=== PATIENT | female | born 1995 | race American Indian/Alaskan Native ===

== ENCOUNTER 2017-08-20 21:00 | Emergency (ER) | payer SELFPAY ==
[2017-08-20 22:26] VITALS: BP 130/87
[2017-08-21] MEDS ORDERED: MOTRIN PO ONE (05:54)
--- NOTE | 2017-08-21 05:54 | Emergency Department Report ---
Minor Respiratory - HPI Chief Complaint: Sore Throat Stated Complaint: COLD SX Time Seen by Provider: 08/21/17 03:53 Duration: Today Pain Location: Throat Severity: severe (8 out of 10 and sore throat) Minor Respiratory: Yes Rhinorrhea (congestion), Yes Sore Throat, Yes Able to Tolerate Fluids, Yes Cough, No Ear Pain, No Sick Contacts, No Hemoptysis, No Chest Pain, No Shortness of Breath, No Fever (patient reports chills) Other History: Patient reports that she has sore throat 1 days with chills but no fever. She reports that she has occasional cough pain is 8 out of 10 and sore. Denies any drooling, difficulty swallowing. Patient says she gets this once a year and she think she needs antibiotic. She has not tried anything over -the-counter. Denies any shortness of breath, or chest pain. ED Review of Systems ROS: Stated complaint: COLD SX Other details as noted in HPI Comment: All other systems reviewed and negative Constitutional: chills ENT: throat pain, congestion Respiratory: cough. denies: orthopnea, shortness of breath, SOB with exertion, SOB at rest, stridor, wheezing Cardiovascular: denies: chest pain, palpitations, edema, syncope Gastrointestinal: denies: abdominal pain, nausea, vomiting, diarrhea, constipation, hematemesis, melena, hematochezia Musculoskeletal: denies: back pain, joint swelling, arthralgia, myalgia Skin: denies: rash Neurological: denies: headache, weakness ED Past Medical Hx - Past Medical History Previous Medical History?: No - Surgical History Past Surgical History?: No - Family History Family history: no significant - Social History Smoking Status: Never Smoker Substance Use Type: Alcohol - Medications Home Medications: Home Medications Medication Instructions Recorded Confirmed Last Taken Type Cetirizine HCl [ZyrTEC] 10 mg PO QAM 14 Days #14 capsule 08/21/17 Unknown Rx Fluticasone [Flonase] 1 spray NS QDAY 14 Days #1 bottle 08/21/17 Unknown Rx Ibuprofen [Motrin] 600 mg PO Q8H PRN 4 Days #12 tablet 08/21/17 Unknown Rx Minor Respiratory Exam - Exam General: Vital signs noted. No distress. Alert and acting appropriately. This is a 22-year-old female well-nourished well-developed in no acute distress. HEENT: Yes Moist Mucous Membranes, Yes Rhinorrhea (nasal mucosa pale and boggy) , No Pharyngeal Erythema, No Pharyngeal Exudates, No Conjuctival Injection, No Frontal Tenderness, No Maxillary Tenderness Ear: Both TM Bulge (TM congested without erythema), Neither TM Erythema, Neither EAC Pain, Neither EAC Discharge Neck: Yes Supple, No Adenopathy Lungs: Yes Good Air Exchange, No Wheezes, No Ronchi, No Stridor, No Cough, No Labored Respirations, No Retractions, No Use of Accessory Muscles, No Other Abnormal Lung Sounds Heart: Yes Regular, No Murmur Abdomen: Yes Normal Bowel Sounds, No Tenderness, No Peritoneal Signs Skin: No Rash, No Edema Neurologic: Alert and oriented, no deficits. No focal neurological deficit Musculoskeletal: Unremarkable. ED Course Vital Signs 08/20/17 22:24 Temperature 98.7 F Pulse Rate 80 Respiratory 18 Rate Blood Pressure 130/87 O2 Sat by Pulse 100 Oximetry - Reevaluation(s) Reevaluation #1: 08/21/17 05:54 Patient here complaining of sore throat given Motrin 800 mg. Strep test negative culture pending ED Medical Decision Making - Lab Data Strep test negative Cultures pending - Medical Decision Making This is a 22-year-old female well-nourished well-developed in no acute distress. Patient here complaining of sore throat times one day with chills. Patient thinks she needs antibiotic because she says she gets this every year. Strep test revealed that the patient had no strep but she has cultures that are pending. Physical findings for allergic rhinitis with pale boggy nasal mucosa, drainage, and congested TM. vital signs are stable and she does not have any enlarged lymph nodes. I discussed this with patient and she feels like she needs antibiotic even though she has not tried anything [id number]. I discussed with her evidence base practice and the use of antibiotic when not necessary which leads to antibiotic resistance. Patient discharged home with prescription for Flonase, Zyrtec and Motrin. Discussion to gargle warm salt water and follow up with her primary care physician. Critical care attestation.: If time is entered above; I have spent that time in minutes in the direct care of this critically ill patient, excluding procedure time. ED Disposition Clinical Impression: Allergic rhinitis Qualifiers: Chronicity: acute Allergic rhinitis trigger: unspecified Allergic rhinitis seasonality: unspecified seasonality Qualified Code(s): J30.9 - Allergic rhinitis, unspecified Pharyngitis Qualifiers: Pharyngitis/tonsillitis etiology: unspecified etiology Qualified Code(s): J02.9 - Acute pharyngitis, unspecified Disposition: DC-01 TO HOME OR SELFCARE Is pt being admited?: No Does the pt Need Aspirin: No Condition: Stable Instructions: Pharyngitis (ED), Allergic Rhinitis (ED), Cold Symptoms (ED) Additional Instructions: Please increase her fluid intake Flush nostrils with saline nasal spray take Flonase and Zyrtec as prescribed F/U with primary care physician as instructed if he do not have a primary care physician U can follow up at [facility] in 3-5 days Gargle with warm salt water Prescriptions: Cetirizine HCl [ZyrTEC] 10 mg PO QAM 14 Days #14 capsule Fluticasone [Flonase] 1 spray NS QDAY 14 Days #1 bottle Ibuprofen [Motrin] 600 mg PO Q8H PRN 4 Days #12 tablet PRN Reason: Pain Referrals: PRIMARY CARE, [Primary Care Provider] - 3-5 Days [facility] [Outside] - 3-5 Days Forms: Work/School Release Form(ED)
== END 2017-08-21 06:42 | disposition home or self-care (01) ==
LOC: ED 21:00
DX: J30.9 Allergic rhinitis, unspecified (principal); J02.9 Acute pharyngitis, unspecified
CPT/HCPCS: 87116; 87430; 99282